=== PATIENT | female | born 1985 | race Caucasian/White ===

== ENCOUNTER 2016-10-13 05:20 | Emergency (ER) | payer MEDICAID ==
[~2016-10-13] VITALS: Ht 162.6 cm; Wt 82.0 kg
[~2016-10-13 05:20] MED LIST: UNK ANTIBIOTIC
[2016-10-13 05:28] VITALS: BP 105/75
== END 2016-10-13 06:20 | disposition left against medical advice (07) ==
LOC: ER 05:20
DX: R10.13 Epigastric pain (principal); R11.2 Nausea with vomiting, unspecified

== ENCOUNTER 2023-01-09 14:18 | Emergency (ER) | payer MEDICAID ==
[~2023-01-09] VITALS: Ht 165.1 cm; Wt 80.0 kg
[2023-01-09 14:28] VITALS: O2SAT 98
[2023-01-09] MEDS ORDERED: LIDOCAINE 5% PATCH TOP SCH (17:30)
[2023-01-09] MEDS ORDERED: ACETAMINOPHEN 325MG TABLET PO ONE (17:30)
[2023-01-09] MEDS ORDERED: LIDO700A30 TP (17:53)
[2023-01-09 18:18] VITALS: BP 134/75; PULSE 70; RESP 16; TEMP 98.6
== END 2023-01-09 18:20 | disposition home or self-care (01) ==
LOC: ER 15:30
DX: M54.50 Low back pain, unspecified (principal); M54.9 Dorsalgia, unspecified; Z87.19 Personal history of other diseases of the digestive system; V49.88XA Car occupant (driver) (passenger) injured in other specified transport accidents, initial encounter; Y93.89 Activity, other specified; Y92.89 Other specified places as the place of occurrence of the external cause; Y99.8 Other external cause status
CPT/HCPCS: 81025; 99283